=== PATIENT | male | born 1970 | race African-American/Black ===

== ENCOUNTER 2024-04-27 14:16 | Emergency (ER) | payer MEDICAID ==
[~2024-04-27] VITALS: Ht 177.8 cm; Wt 83.9 kg
[2024-04-27 14:23] VITALS: PULSE 69; RESP 18; TEMP 98.5; O2SAT 99
[2024-04-27] MEDS ORDERED: MELOXICAM15 MG PO (15:16)
[2024-04-27] MEDS ORDERED: METHOCARBAMOL750 MG PO (15:16)
[2024-04-27] MEDS: KETOROLAC TROMETHAMINE 60 MG/2 ML VIAL IM ONE (15:18)
== END 2024-04-27 15:30 | disposition home or self-care (01) ==
LOC: FSED 14:22
DX: M54.2 Cervicalgia (principal); M62.838 Other muscle spasm; M54.6 Pain in thoracic spine; V43.62XA Car passenger injured in collision with other type car in traffic accident, initial encounter; Y92.488 Other paved roadways as the place of occurrence of the external cause; I10 Essential (primary) hypertension
CPT/HCPCS: 99282; J1885